=== PATIENT | female | born 2000 | race African-American/Black ===

== ENCOUNTER 2022-03-23 07:26 | Emergency (ER) | payer BC ==
[2022-03-23 07:44] VITALS: BP 117/75
--- NOTE | 2022-03-23 07:48 | ED Physician Documentation ---
PD HPI HEENT - Stated complaint Stated Complaint: LT NOSTRIL SWELLING - Chief complaint Chief Complaint: Heent - History obtained from History obtained from: Patient - History of Present Illness Timing - onset: How many days ago (3-4) Timing - duration: Days (3-4) Timing - details: Gradual onset, Still present Location: Nose (left nostril) Improves: Other (not touching) Worsens: Other (palpation) Associated symptoms: Congestion. No: Fever, Headache, Cough Similar symptoms before: Has not had sx before Recently seen: Not recently seen - Additional information Additional information: 21-year-old Aubrey Malloy has developed a swelling and redness to the lateral aspect of her left nostril. She does have some piercings the does not appear to be affected. She does not have drainage from the area she does have a bit of pain associated with it she has not had this previously. Review of Systems Constitutional: denies: Fever Eyes: denies: Decreased vision Ears: denies: Ear pain Nose: reports: Rhinorrhea / runny nose, Congestion, Other (redness/tenderness to the nares on the left) Throat: denies: Sore throat Respiratory: denies: Cough GI: denies: Vomiting, Diarrhea PD PAST MEDICAL HISTORY - Present Medications Home Medications: Ambulatory Orders Medication Instructions Recorded Confirmed Mupirocin 2% Oint [Bactroban 2% 1 applic TOP BID #22 gm 03/23/22 Oint] Norethindrone-E.estradiol-Iron 1 tab PO DAILY 03/23/22 03/23/22 [Shaed 24 Fe 1 mg-20 Mcg Tablet] - Allergies Allergies/Adverse Reactions: Allergies Allergy/AdvReac Type Severity Reaction Status Date / Time No Known Drug Allergies Allergy Verified 03/23/22 07:36 PD ED PE NORMAL - Vitals Vital signs reviewed: Yes (normal ) - General General: Alert and oriented X 3, No acute distress, Well developed/nourished - HEENT HEENT: Atraumatic, PERRL, EOMI, Other (There is swelling and erythema to the left lateral nares. There is no tenting, fluctuance or drainage associated. 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, No motor deficit, No sensory deficit, Normal speech Eye Opening: Spontaneous Motor: Obeys Commands Verbal: Oriented GCS Score: 15 - Psych Psych: Normal mood, Normal affect Results - Vitals Vitals: Vital Signs - 24 hr 03/23/22 07:30 Temperature 37.2 C Heart Rate 89 Respiratory 19 Rate Blood Pressure 117/75 O2 Saturation 100 Oxygen O2 Source Room air PD MEDICAL DECISION MAKING - ED course Complexity details: considered differential, d/w patient ED course: 21-year-old female with swelling and redness to the lateral aspect of her left nares appears to have a staph infection and we will place her on some mupirocin ointment. I have E scribed this to the [facility] in [place] Departure - Departure Disposition: 01 Home, Self Care Clinical Impression: Staph skin infection Condition: Stable Instructions: ED Staph Infec Abx Tx Only Follow-Up: Nelson Velez MD [Physician No Access] - Prescriptions: Mupirocin 2% Oint [Bactroban 2% Oint] 1 applic TOP BID #22 gm Comments: Whit, today it looks like you have a staph infection in the side of your nostril. I have E scribed some mupirocin ointment to the [facility] in [place]. Use this twice per day and expect to have improvement in pain and redness over the next 2 to 3 days.
== END 2022-03-23 08:03 | disposition home or self-care (01) ==
LOC: ED 07:26
DX: J34.89 Other specified disorders of nose and nasal sinuses (principal); B95.8 Unspecified staphylococcus as the cause of diseases classified elsewhere
CPT/HCPCS: 99282